=== PATIENT | female | born 1980 | race Caucasian/White ===

== ENCOUNTER 2016-06-22 12:43 | Emergency (ER) | payer OTHER, MEDICARE ==
[~2016-06-22] VITALS: Ht 180.3 cm; Wt 95.3 kg
[2016-06-22 12:50] VITALS: BP 165/115
[2016-06-22] MEDS ORDERED: ZESTRIL20 MG PO (12:52)
[2016-06-22] MEDS ORDERED: ORETIC25 MG PO (12:52)
--- NOTE | 2016-06-22 12:53 | NUR ---
PT AMBULATED TO BED 7.
--- NOTE | 2016-06-22 12:56 | NUR ---
PATIENT PRESENTS TO ED WITH C/O EYE SWOLLEN . PT STATES IT STARTED THIS MORNING. DENIES N/V/D; SKIN IS PINK/WARM/DRY; AAOX4 WITH EVEN AND STEADY GAIT; LUNGS CLEAR BL; HR EVEN AND REGULAR; PT DENIES ANY FEVER, CP, SOB, OR COUGH AT THIS TIME; PATIENT STATES PAIN OF 0/10 AT THIS TIME; VSS; HOB ELEVATED; BEDRAILS UP X2; BED DOWN. ER MD MADE AWARE OF PT STATUS.
--- NOTE | 2016-06-22 14:08 | NUR ---
Dr. Mckeon evaluating patient at bedside.
--- NOTE | 2016-06-22 14:26 | NUR ---
COMPLETE ASSESSMENT WAS DONE AT 1258
--- NOTE | 2016-06-22 14:32 | NUR ---
Patient discharged with v/s stable. Written and verbal after care instructions given and explained. Patient verbalized understanding. Ambulatory with steady gait. All questions addressed prior to discharge. Advised to follow up with PMD.
[2016-06-22 14:33] VITALS: BP 165/115
== END 2016-06-22 14:32 | disposition home or self-care (01) ==
LOC: MED 13:28
DX: H00.014 Hordeolum externum left upper eyelid (principal); J45.909 Unspecified asthma, uncomplicated; I10 Essential (primary) hypertension; F17.200 Nicotine dependence, unspecified, uncomplicated; Z90.49 Acquired absence of other specified parts of digestive tract

== ENCOUNTER 2016-07-13 09:41 | Emergency (ER) | payer MEDICARE, OTHER ==
[~2016-07-13] VITALS: Ht 180.3 cm; Wt 97.1 kg
[~2016-07-13 09:41] MED LIST: ORETIC25 MG PO; ZESTRIL20 MG PO
[2016-07-13 09:56] VITALS: BP 157/101
--- NOTE | 2016-07-13 10:00 | NUR ---
PATIENT AMBULATED TO BED 2 AT THIS TIME.
--- NOTE | 2016-07-13 10:05 | NUR ---
35/F BIB FAMILT C/O ABDOMINAL PAIN X 1 WK. PT STATES HAS NEASEA/VOMITING 1 TIME & DIARRHEA 2 TIMES X TODAY; SKIN IS PINK/WARM/DRY; AAOX4 WITH EVEN AND STEADY GAIT; LUNGS CLEAR BL; HR EVEN AND REGULAR; PT DENIES ANY FEVER, CP, SOB, OR COUGH AT THIS TIME; PATIENT STATES PAIN OF 8/10 AT THIS TIME; VSS; PATIENT POSITIONED FOR COMFORT; HOB ELEVATED; BEDRAILS UP X2; BED DOWN. ER MD MADE AWARE OF PT STATUS.
--- NOTE | 2016-07-13 10:25 | NUR ---
ER MD DR HELLER EVALUATING PT AT BEDSIDE.
[2016-07-13] MEDS ORDERED: ONDANSETRON 4 MG ODT PO ONE (10:35)
[2016-07-13 11:12] VITALS: BP 132/84
--- NOTE | 2016-07-13 11:12 | NUR ---
Patient discharged with v/s stable. Written and verbal after care instructions given and explained. Patient alert, oriented and verbalized understanding of instructions. Ambulatory with steady gait. All questions addressed prior to discharge. ID band removed. Patient advised to follow up with PMD. Rx of ZOFRAN, IMODIUM & MOTRIN given. Patient educated on indication of medication including possible reaction and side effects. Opportunity to ask questions provided and answered.
== END 2016-07-13 11:12 | disposition home or self-care (01) ==
LOC: MED 09:41
DX: R10.13 Epigastric pain (principal); R11.2 Nausea with vomiting, unspecified; R19.7 Diarrhea, unspecified; J45.909 Unspecified asthma, uncomplicated; I10 Essential (primary) hypertension; F17.200 Nicotine dependence, unspecified, uncomplicated
CPT/HCPCS: 81002; 81025; 99283; S0119

== ENCOUNTER 2018-06-28 14:10 | Emergency (ER) | payer MEDICARE, MEDICAID ==
[~2018-06-28] VITALS: Ht 170.2 cm; Wt 87.1 kg
[~2018-06-28 14:10] MED LIST changes: +LISI-420 PO; +ORE25 PO; -ORETIC25 MG PO; -ZESTRIL20 MG PO
[2018-06-28 14:15] VITALS: BP 129/78
--- NOTE | 2018-06-28 14:17 | NUR ---
PT AMBULATES TO BED 3
--- NOTE | 2018-06-28 14:25 | NUR ---
37 bib self with c/o left ear pain and dry cough x yesterday. Patient denies any injury or fevers. No discharge noted. Patient also reports of decreased hearing to left ear. Pt is aox4 to person, place, time, and situation. RR are even and unlabored. NAd. Awaiting er md wolf. Will continue to monitor.
[2018-06-28 14:40] VITALS: BP 129/78
--- NOTE | 2018-06-28 14:40 | NUR ---
Patient discharged with v/s stable. Written and verbal after care instructions given and explained. Patient alert, oriented and verbalized understanding of instructions. Ambulatory with steady gait. All questions addressed prior to discharge. ID band removed. Patient advised to follow up with PMD. Rx of Motrin 800mg, Amoxicillin 500mg, Cortisporin Otic Suspension, and Tramadol 50mg given. Patient educated on indication of medication including possible reaction and side effects. Opportunity to ask questions provided and answered.
== END 2018-06-28 14:40 | disposition home or self-care (01) ==
LOC: MED 14:10
DX: H66.92 Otitis media, unspecified, left ear (principal); J45.909 Unspecified asthma, uncomplicated; I10 Essential (primary) hypertension; F17.200 Nicotine dependence, unspecified, uncomplicated; Z79.899 Other long term (current) drug therapy
CPT/HCPCS: 99283

== ENCOUNTER 2019-06-01 15:33 | Emergency (ER) | payer MEDICARE, MEDICAID ==
[~2019-06-01] VITALS: Ht 182.9 cm; Wt 105.7 kg
[2019-06-01 15:41] VITALS: BP 168/106
--- NOTE | 2019-06-01 16:08 | NUR ---
38 Y/O F C/C POUNDING H/A X1 DAY; PAIN 10/10 ON FRONTAL AREA. PUPILS PERRLA, NO NEUROLOGICAL ABNORMALITIES NOTED. PT A/OX4. COMPLAINTS OF NAUSEA X TODAY. PER PT HAS NOT BEEN COMPLIANT WITH HTN RX X3 DAYS, PER PT "DONT LIKE TO TAKE PILLS AND I FORGET SOMETIMES". PT NKA. HX HTN, ASTHMA. RX LISINOPRIL, ALBUTEROL. NO VOMITING/DIARRHEA. SIDE RAIL X1.
--- NOTE | 2019-06-01 16:15 | NUR ---
Jaden MELO AT BEDSIDE
[2019-06-01] MEDS ORDERED: ONDANSETRON 4 MG ODT PO ONE (16:30)
[2019-06-01] MEDS ORDERED: HYDROcodone/APAP 5/325 MG 1 TAB TAB PO ONE (16:30)
--- NOTE | 2019-06-01 16:37 | NUR ---
ULTRASOUND AT BEDSIDE
[2019-06-01 18:01] VITALS: BP 148/98
--- NOTE | 2019-06-01 18:01 | NUR ---
Patient discharged with v/s stable. Written and verbal after care instructions given and explained. Patient alert, oriented and verbalized understanding of instructions. Ambulatory with steady gait. All questions addressed prior to discharge. ID band removed. Patient advised to follow up with PMD. Rx of IBUPROFEN given. Patient educated on indication of medication including possible reaction and side effects. Opportunity to ask questions provided and answered. Addendum: 06/01/19 at 1803 by MEDOF PT GIVEN NORCO D/C PRESCRIPTION
== END 2019-06-01 18:01 | disposition home or self-care (01) ==
LOC: MED 15:33
DX: R21 Rash and other nonspecific skin eruption (principal); M79.604 Pain in right leg; J45.909 Unspecified asthma, uncomplicated; I10 Essential (primary) hypertension; Z79.899 Other long term (current) drug therapy
CPT/HCPCS: 81025; 93971; 99284; Q0092; Q0162